=== PATIENT | female | born 1970 | race Caucasian/White ===

== ENCOUNTER → 2016-04-05 | Outpatient (CLI) | payer OTHER ==
--- NOTE | 2016-04-05 12:40 | US ---
Limited pelvic ultrasound INDICATION: Evaluate for bilateral gonadal veins. TECHNIQUE: Transabdominal limited adnexa ultrasound was performed. FINDINGS: Uterus measures 9 x 4.7 x 4.7 cm. No fibroids. Endometrial stripe is normal at 3.6 mm. Right ovary was not visualized. The right adnexal vessels are 4.5 mm in size at greatest dimension. Left ovary measures 3.1 x 2.7 x 2 cm. Two dominant follicles are seen, the largest at 1.4 x 1 x 1.6 c m. Normal color flow is seen. Largest left adnexal vessel measures 3.2 mm. IMPRESSION: Overall, patient does not have pelvic congestion physiology. My suspicion for the source of recurrence of the right inguinal vessels is internal iliac vein. If ne eded, selective right internal iliac venography with intention to embolize can be performed.
--- NOTE | 2016-04-05 18:55 | US ---
Right lower extremity duplex venous Doppler INDICATION: Patient had the right great saphenous vein ablated many years ago. She now has recurrent right lower extremity varicosities contributing to symptoms. Symptoms consist of heaviness and swelli ng, and pain. Patient's job requires many hours of sitting, and that actually has made things worse. Symptoms also have been prominent in the right groin, where the patient feels a deep ache. Conservatively, she has wore 30 to 40 mm knee high compression stockings constantly everyday for mela ral years now. Symptoms have progressed despite of that. Patient presents for evaluation and possible treatment options. TECHNIQUE: Right lower extremity duplex venous Doppler was performed in upright position, followed by discussion with the patient. FINDINGS: As a clinically suspected, there is a cluster of varicosities superficially located at the high ingui nal region, that extend to the lower pelvis. These veins demonstrate contiguous, greater than 7 secon d reflux. Largest one measures 5 mm. These then subsequently contribute to some collateralization of a cluster of vessels in the proximal great saphenous sheath. The great saphenous vein is for the most part ablated. There are small intermittent segments that recanalized because of these collaterals. H owever, for the most part, these collaterals contribute to the currently present varicose veins at th e medial calf and at the medial distal thigh. There is a posteromedial calf expert witness at 4.5 mm, that clinically is appreciated extrinsically as a bulge. This bulge is very tense, consistent with a refluxing or incompetent expert witness, and indeed, this expert witness is shown to reflux at 3 seconds on ultrasound. Otherwise, this expert witness contributes to externally visible varicosities at the posterior calf. The lesser saphenous vein itself is not contributary. Patient does not have an ALT or a parallel vein . The deep system is patent. IMPRESSION: 1. Previously ablated great saphenous vein from knee to groin. 2. 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 3. 4.5 mm expert witness with 3 second reflux at the posterior calf under high pressure. 4. Otherwise contiguous reflux is seen in all of the tributaries present. 5. Recurrence of symptoms despite of constant application of medical grade compression stocking. Recommendation: 1. Laser ablation of the 4.5 mm expert witness at the posteromedial calf. 2. Multivessel sclerotherapy targeting by ultrasound guidance all of the above identified tributaries from the pelvis down to the calf. Special attention should be made to treat the pelvic source with s clerotherapy as high as possible. 3. We will proceed with a pelvic ultrasound today to assess whether the patient has pelvic congestion physiology. The above were discussed with the patient, who expressed understanding. Total [id number] consultati on and exam time was half an hour. Crosscutting Measure: Patient's current list of medications including all known prescriptions, over- the-counters, herbals, and vitamin/mineral/dietary supplements are reviewed. Medications' name, dosa ge, frequency, and route of administration are confirmed. Patient is a nonsmoker.
== END ==
LOC: FIMAGING 07:47
PROVIDERS: ATTEND Radiology Diagnostic Radiology
DX: I83.811 Varicose veins of right lower extremity with pain (principal)

== ENCOUNTER → 2016-05-13 | Day surgery (SDC) | payer OTHER ==
[~2016-05-13] MED LIST: LIDO/EPI 1% **for epidural** 30 ML SDV ONE; SODIUM TETRADECYL SULFATE 60 MG/2 ML VIAL IV ONE
== END | disposition home or self-care (01) ==
LOC: FIMAGING 12:20
PROVIDERS: ATTEND Radiology Diagnostic Radiology
PROC: 065Y3ZZ Destruction of Lower Vein, Percutaneous Approach (ICD-10-PCS; principal; 2016-05-13)
PROC: 3E033TZ Introduction of Destructive Agent into Peripheral Vein, Percutaneous Approach (ICD-10-PCS; principal; 2016-05-13)
DX: I83.811 Varicose veins of right lower extremity with pain (principal); I86.2 Pelvic varices

== ENCOUNTER → 2016-07-14 | Outpatient (CLI) | payer OTHER | LOC: FIMAGING 08:16 | DX: Z12.31 Encounter for screening mammogram for malignant neoplasm of breast (principal); Z80.3 Family history of malignant neoplasm of breast | CPT/HCPCS: G0202 ==

== ENCOUNTER → 2016-07-21 | Outpatient (CLI) | payer OTHER | LOC: FIMAGING 07:20 | PROVIDERS: ATTEND Internal Medicine | DX: R10.9 Unspecified abdominal pain (principal); R63.4 Abnormal weight loss; G62.9 Polyneuropathy, unspecified ==

== ENCOUNTER → 2016-07-22 | Day surgery (SDC) | payer OTHER | END | disposition home or self-care (01) | LOC: FIMAGING 13:47 | PROVIDERS: ATTEND Radiology Diagnostic Radiology | PROC: 3E033TZ Introduction of Destructive Agent into Peripheral Vein, Percutaneous Approach (ICD-10-PCS; principal; 2016-07-22) | DX: I83.891 Varicose veins of right lower extremity with other complications (principal) ==

== ENCOUNTER → 2016-11-30 | Outpatient (CLI) | payer OTHER | LOC: FIMAGING 14:52 | PROVIDERS: ATTEND Internal Medicine | DX: Z12.39 Encounter for other screening for malignant neoplasm of breast (principal); N63 Unspecified lump in breast ==

== ENCOUNTER → 2017-01-27 | Outpatient (CLI) | payer OTHER | LOC: FIMAGING 09:08 | PROVIDERS: ATTEND Surgery | DX: Z12.39 Encounter for other screening for malignant neoplasm of breast (principal); N60.02 Solitary cyst of left breast ==

== ENCOUNTER 2017-02-17 05:51 | Day surgery (SDC) | payer OTHER ==
[2017-02-17] MEDS ORDERED: ceFAZolin 2 GM/SWFI 2 GM/20 ML SYR IVP ONE (06:06)
[2017-02-17] MEDS ORDERED: LIDOCAINE 1% 2 ML INJ ONE (06:11)
[2017-02-17] MEDS ORDERED: LR 1,000 ML IV ONE (06:18)
[2017-02-17] MEDS ORDERED: LIDOCAINE 1% 2 ML INJ ID PRN (06:18)
[2017-02-17] MEDS ORDERED: BUPIVACAINE 0.5% 30 ML SDV ONE (07:01)
--- NOTE | 2017-02-17 07:01 | PDHPUP ---
History & Physical Update H&P update statement: This history and physical update is based on an assessment of the patient which was completed after admission or registration (within 24 hours), but prior to the surgery/procedure. H&P update: H&P reviewed & patient examined, no change in patient's condition since H&P completed
[2017-02-17] MEDS ORDERED: MIDAZOLAM 2 MG/2 ML VIAL IVP ONE (07:02)
--- NOTE | 2017-02-17 07:04 | POSTOPPROG ---
Post Op Note Date of Operation: 02/17/17 Surgeon: Kristal Acharya Integrated Circuit Fabricator: fred Anesthesiologist: Dolly Anesthesia: IV Sedation Pre-op Diagnosis: L breast mass Post-op Diagnosis: same Indication: 46yo F with suspicious left breast mass Procedure: L breast excisional biopsy Findings: None unusual Inf/Abcess present in the surg proc area at time of surgery?: No EBL: Minimal
--- NOTE | 2017-02-17 07:04 | PDANEPAE ---
ANE Past Medical History - Cardiovascular History Hx Hypertension: No Hx Arrhythmias: No Hx Chest Pain: No Hx Coronary Artery / Peripheral Vascular Disease: No Hx CHF / Valvular Disease: No Hx Palpitations: No - Pulmonary History Hx COPD: No Hx Asthma/Reactive Airway Disease: No Hx Recent Upper Respiratory Infection: No Hx Oxygen in Use at Home: No Hx Sleep Apnea: No Sleep Apnea Screening Result - Last Documented: Negative - Neurologic History Hx Cerebrovascular Accident: No Hx Seizures: No Hx Dementia: No - Endocrine History Hx Diabetes: No Hypothyroid: No Hyperthyroid: No Obesity: no - Renal History Hx Renal Disorders: No - Liver History Hx Hepatic Disorders: No - Neurological & Psychiatric Hx Hx Neurological and Psychiatric Disorders: Yes Neurological / Psychiatric History Comment: Raynaud's,depression - Cancer History Hx Cancer: Yes Cancer History Comment: skin cancer - Congenital Disorder History Hx Congenital Disorders: No - GI History Hx Gastrointestinal Disorders: No - Other Health History Other Health History: angioedema - Chronic Pain History Chronic Pain: No - Surgical History Prior Surgeries: R leg vein ablation 2016 ANE Review of Systems Review of Systems: - Exercise capacity METS (RN): 4 METS ANE Patient History - Allergies Allergies/Adverse Reactions: No Known Allergies Allergy (Verified 02/16/17 10:05) - Home Medications Home Medications: ZYRTEC 05/09/16 [Last Taken 02/17/17 05:00] - NPO status NPO Since - Liquids (Date): 02/16/17 NPO Since - Liquids (Time): 11:59 NPO Since - Solids (Date): 02/16/17 NPO Since - Solids (Time): 20:30 - Smoking Hx Smoking Status: Never smoked - Family Anes Hx Family Hx Anesthesia Complications: none ANE Labs/Vital Signs - Vital Signs Blood Pressure: 98/60 Heart Rate: 60 Respiratory Rate: 15 O2 Sat (%): 97 Height: 167.64 cm Weight: 52.617 kg ANE Physical Exam - Airway Neck exam: FROM Mallampati Score: Class 1 Mouth exam: normal dental/mouth exam - Pulmonary Pulmonary: no respiratory distress - Cardiovascular Cardiovascular: regular rate and rhythym - ASA Status ASA Status: II ANE Anesthesia Plan Anesthesia Plan: GA w LMA, GA with mask
--- NOTE | 2017-02-17 07:06 | PDHPUP ---
History & Physical Update H&P update statement: This history and physical update is based on an assessment of the patient which was completed after admission or registration (within 24 hours), but prior to the surgery/procedure. H&P update: H&P reviewed & patient examined (new mass at 6 pm. Will excise as well)
[2017-02-17] MEDS ORDERED: PROPOFOL 200 MG/20 ML VIAL ONE (07:11)
[2017-02-17] MEDS ORDERED: ONDANSETRON 4 MG/2 ML VIAL ONE (07:12)
[2017-02-17] MEDS ORDERED: LIDOCAINE 2% 5 ML SDV ONE (07:12)
[2017-02-17] MEDS ORDERED: fentaNYL 100 MCG/2 ML INJ ONE (07:12)
[2017-02-17] MEDS ORDERED: LIDOCAINE 1% 300 MG/30 ML SDV ONE (07:20)
[2017-02-17] MEDS ORDERED: LR 500 ML IV PRN (07:51)
[2017-02-17] MEDS ORDERED: HYDROCODONE/APAP 5/325 TAB PO PRN (07:51)
[2017-02-17] MEDS ORDERED: PROMETHAZINE HCL 25 MG/ML INJ IVP PRN (07:51)
[2017-02-17] MEDS ORDERED: NALOXONE HCL 0.4 MG/ML INJ IVP PRN (07:51)
[2017-02-17] MEDS ORDERED: fentaNYL 100 MCG/2 ML INJ IVP PRN (07:51)
--- NOTE | 2017-02-17 08:00 | POSTOPPROG ---
Post Op Note Date of Operation: 02/17/17 Surgeon: Kristal Acharya Group President: fred Anesthesiologist: fany Anesthesia: IV Sedation Pre-op Diagnosis: breast mass X 2 Post-op Diagnosis: breast mass x 2 Indication: 46 yo with breast mass x 2 Procedure: excisional breast biopsy x 2 Findings: firm tissue Inf/Abcess present in the surg proc area at time of surgery?: No EBL: Minimal Specimen(s): breast mass x 2
--- NOTE | 2017-02-17 08:10 | POSTANESTH ---
Post Anesthetic Evaluation Cardiovascular Status: Normal, Stable Respiratory Status: Normal, Stable Level of Consciousness/Mental Status: Can Participate in Eval Pain Control: Adequate, Prn Tx Ordered Nausea/Vomiting Control: Adequate, Prn Tx Ordered Complications Possibly Related to Anesthesia: None Noted
[2017-02-17 08:45] VITALS: RESP 16; O2SAT 97
[2017-02-17] MEDS ORDERED: IBUPROFEN 200 MG TAB PO ONE ×2 (09:12→09:16)
[2017-02-17 09:20] VITALS: BP 99/58; PULSE 46; TEMP 97.5
--- NOTE | 2017-02-17 09:58 | GOP ---
[f rep st] OPERATIVE REPORT DATE OF OPERATION: 02/17/2017 SURGEON: Kristal Acharya MD ANESTHESIA: Monitored anesthesia care with IV sedation. ANESTHESIOLOGIST: Garcia Alberto MD PREOPERATIVE DIAGNOSIS: Left breast mass x2. POSTOPERATIVE DIAGNOSIS: Left breast mass x2. PROCEDURE PERFORMED: Left excisional breast biopsy x2. FINDINGS: Dense breast tissue. SPECIMENS: Left breast mass, 12 o'clock, 2 cm from the nipple and left breast mass, 6 o'clock, 1 cm from the nipple. ESTIMATED BLOOD LOSS: Loss less than 10 cc. INDICATIONS: The patient is a 46-year-old woman who has palpable breast masses, her imaging is negat patricia, they are tender. DESCRIPTION OF PROCEDURE: The patient was brought into the operating room, placed supine on the tabl e and monitored anesthesia care with IV sedation was performed. Her left breast was prepped and drap ed in the usual sterile fashion. Infiltrated the area with 0.5% Marcaine mixed with 1% lidocaine and made an incision over the breast mass. I created superior and inferior skin flaps and dissected miguel n beyond the level. I put my finger in the cavity and there was another firm room of tissue, which I excised. Next, I moved to the 6 o'clock position. In a similar fashion, I excised the firm tissue. Each cavity was inspected for hemostasis, which was controlled with electrocautery. Each wound was closed in a deep layer with 3-0 Vicryl. Skin closed with 3-0 Vicryl, 4-0 Monocryl. Mastisol, Steri -Strips, sterile dressing were applied. She was awakened in the operating room, transferred to PACU in stable condition. /[id number]/MODL
== END 2017-02-17 09:20 | disposition home or self-care (01) ==
LOC: FSGY 05:51
PROVIDERS: ATTEND Surgery
DX: N63.20 Unspecified lump in the left breast, unspecified quadrant (principal); F32.9 Major depressive disorder, single episode, unspecified; Z80.3 Family history of malignant neoplasm of breast
CPT/HCPCS: J0690; J2250; J2405; J2704; J3010

== ENCOUNTER → 2017-11-16 | Outpatient (CLI) | payer OTHER ==
[~2017-11-16] MED LIST changes: +GADOBUTROL 10 ML VIAL IVP ONE; -LIDO/EPI 1% **for epidural** 30 ML SDV ONE; -SODIUM TETRADECYL SULFATE 60 MG/2 ML VIAL IV ONE
== END ==
LOC: FIMAGING 08:54
PROVIDERS: ATTEND Advanced Practice Midwife
DX: N60.92 Unspecified benign mammary dysplasia of left breast (principal); Z80.3 Family history of malignant neoplasm of breast; Z86.018 Personal history of other benign neoplasm
CPT/HCPCS: 0159T; 77059; A9585; C8908

== ENCOUNTER → 2017-11-28 | Outpatient (CLI) | payer OTHER | LOC: FIMAGING 08:59 | PROVIDERS: ATTEND Advanced Practice Midwife | DX: Z12.31 Encounter for screening mammogram for malignant neoplasm of breast (principal) ==